=== PATIENT | male | born 1980 | race African-American/Black ===

== ENCOUNTER 2016-09-21 08:47 | Emergency (ER) | payer MEDICAID ==
[~2016-09-21] VITALS: Ht 177.8 cm; Wt 84.0 kg
[2016-09-21 08:50] VITALS: BP 140/96
== END 2016-09-21 10:26 | disposition home or self-care (01) ==
LOC: ER 09:08
DX: J06.9 Acute upper respiratory infection, unspecified (principal); B34.9 Viral infection, unspecified
CPT/HCPCS: 99283

== ENCOUNTER 2016-10-28 07:45 | Emergency (ER) | payer MEDICAID ==
[~2016-10-28] VITALS: Ht 177.8 cm; Wt 75.0 kg
[2016-10-28 07:55] VITALS: BP 146/89
[2016-10-28] MEDS ORDERED: KETOROLAC 30MG/ML VIAL IV ONE (11:00)
[2016-10-28] MEDS ORDERED: ONDANSETRON HCL 4MG/2ML VIAL IV ONE (11:00)
[2016-10-28] MEDS ORDERED: FAMOTIDINE 20MG/2ML VIAL IV ONE (11:00)
[2016-10-28 11:37] LABS: HEMOGLOBIN. 14.8 g/dL (14.0-18.0); MEAN CORPUSCULAR HGB CONC 34.4 g/dL (31.0-37.0); PLATELET 279 x1000/uL (130-400); RED BLOOD CELL COUNT 4.78 mill/uL (4.7-6.1); RED CELL DISTRIBUTION WIDTH 14.3 % (11.6-14.6)
[2016-10-28 11:45] LABS: CHLORIDE 102 mEq/L (98-107); INDEX HEMOLYSI 1 (1-3); INDEX ICTERIC 1 (1-4); INDEX LIPEMIC 1 (1-3)
[2016-10-28 11:52] LABS: ANION GAP 10; CALCIUM 8.9 mg/dL (8.5-10.1); CARBON DIOXIDE 29 mEq/L (21-32); UREA NITROGEN BLOOD 15 mg/dL (7-21)
[2016-10-28 11:57] LABS: ALANINE AMINOTRANSFERASE 23 IU/L (13-61); eGFR > 60 mL/min (>60)
[2016-10-28 12:43] LABS: PLATELET ESTIMATE NORMAL
== END 2016-10-28 11:46 | disposition left against medical advice (07) ==
LOC: ER 08:29
DX: R10.13 Epigastric pain (principal); R19.7 Diarrhea, unspecified; F17.210 Nicotine dependence, cigarettes, uncomplicated
CPT/HCPCS: 36415; 80053; 85007; 85027; 99284; Z7610

== ENCOUNTER 2017-06-02 13:04 | Emergency (ER) | payer MEDICAID ==
[~2017-06-02] VITALS: Ht 180.3 cm; Wt 82.0 kg
[2017-06-02 13:39] VITALS: BP 130/69
== END 2017-06-02 15:36 | disposition home or self-care (01) ==
LOC: ER 13:40
DX: L25.9 Unspecified contact dermatitis, unspecified cause (principal)
CPT/HCPCS: 99282

== ENCOUNTER 2020-11-30 14:12 | Emergency (ER) | payer MEDICAID ==
[~2020-11-30] VITALS: Ht 177.8 cm; Wt 80.0 kg
[2020-11-30 14:16] VITALS: BP 154/90
[2020-11-30 14:57] LABS: EOSINOPHILS % 11.6 % (0.0-5.0); HEMATOCRIT. 41.6 % (42.0-52.0); HEMOGLOBIN. 14.8 g/dL (14.0-18.0); LYMPHOCYTES % 20.7 % (20.0-50.0); MEAN CORPUSCULAR HEMOGLOBIN 33.4 pg (28.0-32.0); MEAN CORPUSCULAR VOLUME 94.1 fL (80.0-94.0); MEAN PLATELET VOLUME 6.9 fl (7.4-10.4); MONOCYTES % 12.4 % (2.0-8.0); NEUTROPHILS % 54.3 % (40.0-76.0); PLATELET 316 x1000/uL (130-400); RED BLOOD CELL COUNT 4.43 mill/uL (4.7-6.1); RED CELL DISTRIBUTION WIDTH 13.3 % (11.6-14.6)
[2020-11-30] MEDS: SODIUM CHLORIDE 0.9% 1,000 ML IV ONE (14:57)
[2020-11-30] MEDS: LORAZEPAM 0.5MG TABLET PO ONE (14:58)
[2020-11-30 15:01] LABS: CLARITY URINE CLEAR (CLEAR); COLOR URINE YELLOW (YELLOW); KETONES URINE NEGATIVE (NEGATIVE); LEUKOCYTE ESTERASE URINE NEGATIVE (NEGATIVE); NITRITE URINE NEGATIVE (NEGATIVE); OCCULT BLOOD URINE NEGATIVE (NEGATIVE); PH URINE 6.5 (4.5-8.0); PROTEIN URINE NEGATIVE (NEGATIVE); SPECIFIC GRAVITY URINE 1.007 (1.005-1.030); UROBILINOGEN URINE 0.2 E.U./dL (0.2-1.0)
[2020-11-30 15:04] LABS: CHLORIDE 102 mEq/L (98-107)
[2020-11-30 15:07] LABS: ETHANOL BLOOD 230 mg/dL
[2020-11-30 15:12] LABS: CREATINE KINASE 360 IU/L (39-308)
[2020-11-30 15:15] LABS: *AMPHETAMINES SCREEN URINE PRESUMTIVE POSITIVE (NEGATIVE); *BARBITURATES SCREEN URINE NEGATIVE (NEGATIVE); *BENZODIAZEPINES SCREEN URINE NEGATIVE (NEGATIVE)
[2020-11-30 15:16] LABS: *COCAINE SCREEN URINE NEGATIVE (NEGATIVE); CANNABINOID URINE SCREEN NEGATIVE (NEGATIVE); METHADONE URINE SCREEN NEGATIVE (NEGATIVE); OPIATES URINE SCREEN NEGATIVE (NEGATIVE); PHENCYCLIDINE URINE SCREEN NEGATIVE (NEGATIVE)
== END 2020-11-30 16:36 | disposition left against medical advice (07) ==
LOC: ER 14:12
DX: T43.621A Poisoning by amphetamines, accidental (unintentional), initial encounter (principal); F17.200 Nicotine dependence, unspecified, uncomplicated; Y92.9 Unspecified place or not applicable
CPT/HCPCS: 36415; 71045; 80053; 80305; 80320; 81003; 82550; 85025; 93005; 96360; 99285; J7030; G0480

== ENCOUNTER 2021-01-20 14:23 | Emergency (ER) | payer MEDICAID ==
[~2021-01-20] VITALS: Ht 177.8 cm; Wt 75.0 kg
[2021-01-20] MEDS ORDERED: SODIUM CHLORIDE 0.9% 1,000 ML IV ONE (14:45)
[2021-01-20 16:04] LABS: BASOPHILS % 0.5 % (0.0-2.0); EOSINOPHILS % 5.2 % (0.0-5.0); HEMATOCRIT. 42.7 % (42.0-52.0); HEMOGLOBIN. 14.8 g/dL (14.0-18.0); MEAN CORPUSCULAR HEMOGLOBIN 32.8 pg (28.0-32.0); MEAN CORPUSCULAR VOLUME 94.4 fL (80.0-94.0); MEAN PLATELET VOLUME 7.5 fl (7.4-10.4); MONOCYTES % 7.4 % (2.0-8.0); NEUTROPHILS % 75.9 % (40.0-76.0); PLATELET 256 x1000/uL (130-400); RED BLOOD CELL COUNT 4.52 mill/uL (4.7-6.1); RED CELL DISTRIBUTION WIDTH 14.2 % (11.6-14.6)
[2021-01-20 16:11] LABS: CHLORIDE 101 mEq/L (98-107)
[2021-01-20 16:15] LABS: ETHANOL BLOOD < 10 mg/dL
[2021-01-20 16:24] LABS: CREATINE KINASE 159 IU/L (39-308)
[2021-01-20 16:59] LABS: CLARITY URINE CLEAR (CLEAR); COLOR URINE YELLOW (YELLOW); KETONES URINE NEGATIVE (NEGATIVE); LEUKOCYTE ESTERASE URINE NEGATIVE (NEGATIVE); NITRITE URINE NEGATIVE (NEGATIVE); OCCULT BLOOD URINE NEGATIVE (NEGATIVE); PH URINE >=9.0 (4.5-8.0); PROTEIN URINE TRACE (NEGATIVE); SPECIFIC GRAVITY URINE 1.018 (1.005-1.030)
[2021-01-20 17:18] LABS: *BENZODIAZEPINES SCREEN URINE PRESUMTIVE POSITIVE (NEGATIVE); *COCAINE SCREEN URINE NEGATIVE (NEGATIVE); METHADONE URINE SCREEN NEGATIVE (NEGATIVE)
[2021-01-20 17:19] LABS: *AMPHETAMINES SCREEN URINE NEGATIVE (NEGATIVE); *BARBITURATES SCREEN URINE NEGATIVE (NEGATIVE); CANNABINOID URINE SCREEN NEGATIVE (NEGATIVE); OPIATES URINE SCREEN NEGATIVE (NEGATIVE); PHENCYCLIDINE URINE SCREEN NEGATIVE (NEGATIVE)
[2021-01-20 17:30] VITALS: BP 166/95
== END 2021-01-20 17:42 | disposition home or self-care (01) ==
LOC: ER 14:23
DX: T45.0X1A Poisoning by antiallergic and antiemetic drugs, accidental (unintentional), initial encounter (principal); Y92.89 Other specified places as the place of occurrence of the external cause; F10.239 Alcohol dependence with withdrawal, unspecified; Y90.0 Blood alcohol level of less than 20 mg/100 ml; F15.10 Other stimulant abuse, uncomplicated
CPT/HCPCS: 36415; 80053; 80305; 80307; 80320; 80329; 81003; 82550; 82962; 83605; 84443; 85025; 99283; J7030; G0480

== ENCOUNTER 2021-09-15 10:10 | Emergency (ER) | payer MEDICAID, OTHER ==
[~2021-09-15] VITALS: Ht 177.8 cm; Wt 78.0 kg
[2021-09-15 10:13] VITALS: BP 126/87
== END 2021-09-15 12:45 | disposition left against medical advice (07) ==
LOC: ER 11:11
DX: R07.89 Other chest pain (principal)
CPT/HCPCS: 93005; 99283

== ENCOUNTER 2023-05-11 22:16 | Emergency (ER) | payer MEDICAID ==
[~2023-05-11] VITALS: Ht 172.7 cm; Wt 80.0 kg
[2023-05-11 22:23] VITALS: BP 165/102; PULSE 80; RESP 16; TEMP 98.2; O2SAT 100
== END 2023-05-12 04:15 | disposition left against medical advice (07) ==
LOC: ER 22:37
DX: R11.2 Nausea with vomiting, unspecified (principal); Z53.21 Procedure and treatment not carried out due to patient leaving prior to being seen by health care provider
CPT/HCPCS: 99281

== ENCOUNTER 2023-10-23 00:40 | Emergency (ER) | payer MEDICAID ==
[~2023-10-23] VITALS: Ht 180.3 cm; Wt 72.0 kg
[2023-10-23 00:46] VITALS: BP 133/87; PULSE 94; RESP 18; TEMP 97.8; O2SAT 100
[2023-10-23 02:02] LABS: BASOPHILS % 0.8 % (0.0-2.0); EOSINOPHILS % 4.3 % (0.0-5.0); HEMATOCRIT. 43.1 % (42.0-52.0); HEMOGLOBIN. 15.1 g/dL (14.0-18.0); LYMPHOCYTES % 19.7 % (20.0-50.0); MEAN CORPUSCULAR HEMOGLOBIN 33.2 pg (28.0-32.0); MEAN CORPUSCULAR HGB CONC 35.1 g/dL (31.0-37.0); MEAN CORPUSCULAR VOLUME 94.7 fL (80.0-94.0); MEAN PLATELET VOLUME 7.1 fl (7.4-10.4); MONOCYTES % 6.5 % (2.0-8.0); NEUTROPHILS % 68.7 % (40.0-76.0); PLATELET 296 x1000/uL (130-400); RED BLOOD CELL COUNT 4.55 mill/uL (4.7-6.1); WHITE BLOOD COUNT 4.4 x1000/uL (4.5-11.0)
[2023-10-23 02:08] LABS: CHLORIDE 104 mEq/L (98-107); POTASSIUM 3.5 mEq/L (3.5-5.1); SODIUM 140 mEq/L (136-145)
[2023-10-23 02:09] LABS: CALCIUM 8.8 mg/dL (8.7-10.4); CARBON DIOXIDE 26 mEq/L (21-32)
[2023-10-23 02:14] LABS: CREATININE 0.9 mg/dL (0.6-1.3); GLUCOSE 96 mg/dL (70-105); UREA NITROGEN BLOOD 13 mg/dL (9-23)
[2023-10-23 02:15] LABS: LACTIC ACID 2.9 mmol/L (0.4-2.0)
[2023-10-23 02:16] LABS: ALANINE AMINOTRANSFERASE 203 IU/L (10-49); ALBUMIN 4.5 g/dL (3.2-4.8); ASPARTATE AMINOTRANSFERASE 260 IU/L (<34); BILIRUBIN DIRECT 0.4 mg/dL (<=3.0); BILIRUBIN TOTAL 1.1 mg/dL (0.1-1.0); PROTEIN TOTAL 7.5 g/dL (6.0-8.3)
[2023-10-23] MEDS ORDERED: LORAZEPAM 2MG/ML INJ IV NR (02:45)
[2023-10-23] MEDS: ONDANSETRON HCL 4MG/2ML INJ IV STA (02:50)
[2023-10-23] MEDS: SODIUM CHLORIDE 0.9% 1,000 ML IV ONE (02:50)
[2023-10-23] MEDS: KETOROLAC 30MG/ML VIAL IV STA (02:50)
[2023-10-23] MEDS: FAMOTIDINE 20MG/2ML VIAL IV STA (02:57)
[2023-10-23] MEDS: KETOROLAC 30MG/ML VIAL IV NR (03:01)
[2023-10-23] MEDS: FAMOTIDINE 20MG/2ML VIAL IV NR (03:01)
[2023-10-23] MEDS: ONDANSETRON HCL 4MG/2ML INJ IV NR (03:01)
[2023-10-23] MEDS ORDERED: ONDA4TAB50 MT (04:32)
== END 2023-10-23 06:35 | disposition home or self-care (01) ==
LOC: ER 00:40
DX: F10.20 Alcohol dependence, uncomplicated (principal); R53.1 Weakness; R11.0 Nausea; F15.10 Other stimulant abuse, uncomplicated
CPT/HCPCS: 99284; 96374; 96375; 96361; 80076; 80048; 83605; 83690; 85025; 36415; J3490; J1885; J2405; J7030